=== PATIENT | female | born 1985 | race Caucasian/White ===

== ENCOUNTER 2016-11-29 12:28 | Emergency (ER) | payer OTHER ==
[~2016-11-29] VITALS: Ht 167.6 cm; Wt 86.2 kg
[2016-11-29 12:38] VITALS: BP 153/86; PULSE 110; RESP 16; TEMP 98.1; O2SAT 98
--- NOTE | 2016-11-29 12:55 | NUR ---
Patient to ER bed 3 to gown for evaluation. Side rails up. Report given to Kadie GALVIN.
--- NOTE | 2016-11-29 12:57 | NUR ---
Dr Stone at bedside examining patient
--- NOTE | 2016-11-29 12:59 | NUR ---
Pt brought by self, A&Ox4, pt states she is 22 weeks involved on [place], +SB, -AB, -PCI, skin pink and warm, ambulatory, c/o soreness in jasmyn upper and lower extremities, cap refill <3, VSS, no active bleeding or contractions, respirations even and unlabored.
--- NOTE | 2016-11-29 13:25 | NUR ---
US at bedside
[2016-11-29 14:33] VITALS: BP 148/86; PULSE 110; RESP 16; TEMP 98.1; O2SAT 98
== END 2016-11-29 14:33 | disposition home or self-care (01) ==
LOC: SED 12:28
DX: O9A.212 Injury, poisoning and certain other consequences of external causes complicating pregnancy, second trimester (principal); Z3A.15 15 weeks gestation of pregnancy; W22.8XXA Striking against or struck by other objects, initial encounter; Y93.89 Activity, other specified; Y99.8 Other external cause status; Y92.411 Interstate highway as the place of occurrence of the external cause
CPT/HCPCS: 76805-TC; 99284